=== PATIENT | male | born 1975 | race Two or more races ===

== ENCOUNTER 2025-05-12 13:31 | Inpatient (IN) | payer OTHER ==
[2025-05-12] MEDS ORDERED: POLYETHYLENE GLYCOL (HEALTHYLAX) 3350 17 GM PACKET PO PRN (14:24)
[2025-05-12] MEDS ORDERED: ACETAMINOPHEN 325 MG TABLET (FP) PO PRN ×2 (14:24)
[2025-05-12] MEDS ORDERED: ONDANSETRON *ODT* 4 MG TABLET SL PRN (14:24)
[2025-05-12] MEDS ORDERED: MAG HYDROX/AL HYDROX/SIMETH 30 ML UNIT-DOSE CUP PO PRN (14:24)
[2025-05-12] MEDS ORDERED: chlordiazePOXIDE HCL 25 MG CAPSULE PO PRN (14:24)
[2025-05-12] MEDS ORDERED: METHOCARBAMOL 500 MG TABLET PO PRN (14:24)
[2025-05-12] MEDS ORDERED: MAGNESIUM HYDROX 2400MG/30ML ORAL SUSPENSION 30 ML CUP PO PRN (14:24)
[2025-05-12] MEDS ORDERED: BENZOCAINE/MENTHOL (CHLORASEPTIC ) LOZENGE MM PRN (14:24)
[2025-05-12] MEDS ORDERED: hydrOXYzine PAMOATE 25 MG CAPSULE (FP) PO PRN (14:24)
[2025-05-12] MEDS ORDERED: BENZONATATE 200 MG CAPSULE PO PRN (14:24)
[2025-05-12] MEDS ORDERED: LOPERAMIDE HCL 2 MG CAPSULE PO PRN (14:24)
[2025-05-12] MEDS ORDERED: NALOXONE (NARCAN) HCL 4 MG/0.1 ML SPRAY NS PRN (14:24)
[2025-05-12] MEDS ORDERED: BISMUTH SUBSALICYLATE 524 MG/30 ML PO PRN (14:24)
[2025-05-12] MEDS ORDERED: NICOTINE POLACRILEX 2 MG GUM BUC PRN (14:24)
[2025-05-12] MEDS ORDERED: guaiFENesin 600 MG TABLET.ER (FP) PO PRN (14:24)
[2025-05-12] MEDS ORDERED: DICYCLOMINE HCL 10 MG CAPSULE PO PRN (14:24)
[2025-05-12 15:06] VITALS: BMI 23.0
[2025-05-12] MEDS: NALTREXONE HCL 50 MG TABLET PO ONE (17:48)
[2025-05-12] MEDS: THIAMINE 100 MG TABLET PO SCH (22:15)
[2025-05-12] MEDS: MELATONIN 5 MG TABLETS PO SCH (22:15)
[2025-05-12] MEDS: chlordiazePOXIDE HCL 25 MG CAPSULE PO SCH (22:15)
[2025-05-12] MEDS: levETIRAcetam 500 MG TABLET (FP) PO SCH (22:15)
[2025-05-13] MEDS: PRENATAL VITAMINS W/ FOLIC ACID TABLET (FP) PO SCH (10:15)
[2025-05-13] MEDS: NALTREXONE HCL 50 MG TABLET PO SCH (10:15)
[2025-05-13 10:39] LABS: HEMATOCRIT 31.4 % (40.1-51.0); HEMOGLOBIN 10.9 g/dL (13.7-17.5); MCHC 34.7 g/dl (32.3-36.5); MEAN CELL VOLUME 103.6 fl (79.0-92.2); MEAN PLT VOLUME 10.6 fl (9.4-12.4); PLATELET COUNT 296 x10^3/uL (163-337); RDW 11.5 % (12.1-15.9)
[2025-05-13 10:51] LABS: CHLORIDE 102 mmol/L (98-107); POTASSIUM 4.3 mmol/L (3.5-5.1); SODIUM 140 mmol/L (136-145)
[2025-05-13 10:57] LABS: BLOOD UREA NITROGEN 14.5 mg/dL (7-18); CALCIUM 9.8 mg/dL (8.5-10.1); GLUCOSE,RANDOM 143 mg/dL (74-106)
[2025-05-13 10:59] LABS: ALBUMIN 3.5 g/dl (3.4-5.0); ANION GAP 10 mmol/L (4-13); CO2 28 mmol/L (21-32)
[2025-05-13 11:02] LABS: BILIRUBIN,TOTAL 0.7 mg/dL (0.2-1); CREATININE 1.1 mg/dL (0.55-1.3); SGOT/AST 28 U/L (15-37); SGPT/ALT 38 U/L (13-61); TOT PROT 6.3 g/dl (6.4-8.2)
[2025-05-13 11:04] LABS: ALK PHOS 88 U/L (45-117)
[2025-05-13] MEDS: metFORMIN HCL 500 MG TABLET (FP) PO SCH (12:00)
[2025-05-13] MEDS: INSULIN ASPART SLIDING SCALE (NOVOLOG) 1 VIAL SQ SCH (17:23)
[2025-05-14] MEDS: chlordiazePOXIDE HCL 25 MG CAPSULE PO SCH (05:14)
[2025-05-15] MEDS ORDERED: chlordiazePOXIDE HCL 10 MG CAPSULE PO PRN
[2025-05-15] MEDS: chlordiazePOXIDE HCL 10 MG CAPSULE PO SCH (05:50)
[2025-05-15 06:30] VITALS: TEMP 97.5
[2025-05-15 09:01] VITALS: BP 124/96; PULSE 88; RESP 18
[2025-05-16] MEDS ORDERED: chlordiazePOXIDE HCL 10 MG CAPSULE PO SCH (05:00)
[2025-05-17] MEDS ORDERED: chlordiazePOXIDE HCL 10 MG CAPSULE PO ONE (05:00)
== END 2025-05-15 09:54 | disposition home or self-care (01) | DRG 775 ==
LOC: YASAS 13:31 → Y3N 14:44
PROVIDERS: ADMIT Family Medicine; ATTEND Family Medicine
PROC: HZ2ZZZZ Detoxification Services for Substance Abuse Treatment (ICD-10-PCS; principal; 2025-05-12)
DX: F10.230 Alcohol dependence with withdrawal, uncomplicated (principal); F17.210 Nicotine dependence, cigarettes, uncomplicated; G47.00 Insomnia, unspecified; E11.9 Type 2 diabetes mellitus without complications; Z79.84 Long term (current) use of oral hypoglycemic drugs
CPT/HCPCS: 36415; 80053; 80177; 80305; 80307; 82962; 83036; 85027; 86780; 93005; 93010